=== PATIENT | male | born 1965 | race African-American/Black ===

== ENCOUNTER 2018-01-27 05:28 | Emergency (ER) | payer OTHER ==
[~2018-01-27] VITALS: Ht 172.7 cm; Wt 69.4 kg
--- NOTE | 2018-01-27 06:04 | NUR ---
PT PRESENTED TO THE ER WITH A C/O CHRONIC BACK PAIN AND NAUSEA/DEHYDRATION. PT STATED THAT HE NORMALLY TAKES DILAUDID FOR HIS BACK PAIN, BUT IS VISITING FROM [place] AND FORGOT HIS MEDICATION BEHIND. PT AMBULATED TO BED #12 WITH A SLOW STEADY GAIT. PT IS LYING PRONE ON THE BED.
[2018-01-27] MEDS ORDERED: KETOROLAC TROMETHAMINE INJ 60 MG/2 ML VIAL IM ONE (06:30)
[2018-01-27] MEDS ORDERED: CARISOPRODOL 350 MG TABLET PO ONE (06:30)
[2018-01-27] MEDS ORDERED: TRAMADOL HCL 50 MG TABLET PO ONE (06:30)
[2018-01-27] MEDS ORDERED: KETOROLAC TROMETHAMINE INJ 30 MG/ML VIAL ONE (06:37)
[2018-01-27] MEDS ORDERED: TRAMADOL HCL 50 MG TABLET ONE (06:37)
[2018-01-27] MEDS ORDERED: CARISOPRODOL 350 MG TABLET ONE (06:38)
--- NOTE | 2018-01-27 06:40 | NUR ---
PT REC'D MEDICATION ORDERED. PT REQUESTED IV FLUID. DR. LAWS NOTIFIED AND NEW ORDERS GIVEN.
--- NOTE | 2018-01-27 06:59 | NUR ---
20G IV STARTED IN [facility]. IVF INFUSING ORDERED.
[2018-01-27] MEDS ORDERED: IV NS 0.9% 1,000 ML BAG IV ONE (07:00)
--- NOTE | 2018-01-27 07:15 | NUR ---
REPORT GIVEN TO ISABEL GARZON FOR COLLIN.
[2018-01-27 07:57] VITALS: BP 145/80
== END 2018-01-27 07:58 | disposition home or self-care (01) ==
LOC: ER 05:31
DX: S39.012A Strain of muscle, fascia and tendon of lower back, initial encounter (principal); I10 Essential (primary) hypertension; G89.29 Other chronic pain; Z98.890 Other specified postprocedural states; W18.49XA Other slipping, tripping and stumbling without falling, initial encounter; Y93.89 Activity, other specified; Y92.002 Bathroom of unspecified non-institutional (private) residence as the place of occurrence of the external cause; Y99.9 Unspecified external cause status
CPT/HCPCS: 72110-TC; A4606; J1885; J7030; Z7610